=== PATIENT | female | born 1965 | race Two or more races ===

== ENCOUNTER 2019-05-17 23:18 | Emergency (ER) | payer OTHER ==
[~2019-05-17] VITALS: Ht 160 cm; Wt 63.5 kg
[2019-05-18] MEDS ORDERED: ZEBUTAL 50-3251 EACH PO (05:04)
[2019-05-18] MEDS ORDERED: FLONASE16 GM NASAL (05:13)
== END 2019-05-18 05:22 | disposition home or self-care (01) ==
LOC: ER 23:18
DX: G44.209 Tension-type headache, unspecified, not intractable (principal)

== ENCOUNTER → 2019-07-15 | Outpatient (CLI) | payer OTHER ==
[~2019-07-15] MED LIST: FLONASE16 GM NASAL; ZEBUTAL 50-3251 EACH PO
== END | disposition home or self-care (01) ==
LOC: RAD 11:03
DX: S13.4XXA Sprain of ligaments of cervical spine, initial encounter (principal); M47.22 Other spondylosis with radiculopathy, cervical region